=== PATIENT | female | born 1955 | race Hispanic/Latino ===

== ENCOUNTER 2025-07-07 14:59 | Emergency (ER) | payer OTHER, SELFPAY ==
--- NOTE | 2025-07-07 15:07 | ED_ITS ---
HPI - URI/Sore Throat General Chief Complaint: Upper Respiratory Infection Stated Complaint: Cough Time Seen by Provider: 07/07/25 15:00 Source: patient Mode of arrival: ambulatory Limitations: no limitations History of Present Illness HPI Narrative: Patient is a 70-year-old female who presents with 1 and half weeks of productive cough. Patient coughing up green mucus and has intermittent shortness of breath with exertion. Was taking Robitussin but stopped due to being diabetic. Denies any congestion, ear pain, fever, chills, nausea vomiting, diarrhea. Related Data Home Medications ?Medication ?Instructions ?Recorded ?Confirmed ?Last Taken ?Type atorvastatin 20 mg tablet mg 07/07/25 Unknown History chlorthalidone 25 mg tablet mg 07/07/25 Unknown Histo ry empagliflozin 25 mg tablet mg 07/07/25 Unknown Histor y (Jardiance) insulin glargine 100 unit/mL (3 unit subcut 07/07/25 Unknown History mL) subcutaneous pen (Basaglar KwikPen U-100 Insulin) levothyroxine 100 mcg tablet mcg 07/07/25 Unknown His tory losartan 50 mg tablet mg 07/07/25 Unknown History metformin 1,000 mg tablet mg 07/07/25 Unknown History Allergies Allergy/AdvReac Type Severity Reaction Status Date / Time No Known Drug Allergies Allergy none Verified 07/07/25 15:20 Review of Systems Review of Systems: All systems reviewed & are unremarkable except as noted in HPI and below Constitutional: Constitutional: Denies chills, Denies fatigue, Denies fever(s), Denies headache(s), Denies malaise and Denies weakness Eyes: Eyes: Denies blurry vision, Denies itchy eyes and Denies loss of vision ENT: Denies otalgia, Denies headache(s), Denies nasal congestion, Denies sinus pain and Denies sore throat Cardiovascular: Cardiovascular: Denies chest pain, Denies irregular heart rhythm and Denies dyspnea Respiratory: Respiratory: Reports cough and Denies dyspnea Gastrointestinal: Gastrointestinal: Denies abdominal pain, Denies diarrhea, Denies nausea and Denies vomiting Musculoskeletal: Musculoskeletal: Denies back pain, Denies myalgias and Denies arthralgias Integumentary/Breasts: Skin/Breast: Denies pruritus and Denies rash Neurologic: Denies headache(s), Denies loss of vision and Denies weakness Psychiatric: Psychiatric: Reports no additional psychiatric complaints Endocrine: Endocrine: Denies fatigue Allergic/Immunologic: Allergic/Immunologic: Denies itchy eyes PMFSH Comments At time of signature, agree with nursing past medical, surgical, social and family history. There is no relevant family history pertinent to the presenting complaint. Exam Const: General: cooperative, healthy appearing, comfortable, no acute distress and well nourished Nutritional Appearance: well nourished Orientation/consciousness: patient oriented x3 Limitations: no limitations HENMT: Head: normal to inspection, normocephalic and atraumatic Ears: hearing grossly normal bilaterally, external ears normal, TM's normal bilaterally, EAC's normal and no periauricular adenopathy Face/Nose/Sinus: Normal external nose present, Abnormal mucous membranes and turbinates present erythematous bilateral and diffuse, normal facial exam, sinuses nontender and face symmetric Face and sinus: normal facial exam, sinuses nontender and face symmetric Mouth: Yes Normal oral and palatal mucosa present, Yes lip normal, Yes tongue normal, Yes Normal salivary glands and ducts present, Yes oropharynx normal and Yes moist mucous membranes Teeth and gingiva: dentition normal Throat: posterior oropharynx normal, tonsils normal and uvula midline Eyes: General: appearance normal, both eyes and all related structures Alignment and Position: alignment normal and position normal Periorbital: periorbital findings normal Eyelids: eyelids normal Pupils: Equal, round and reactive pupils present Neck: Neck: normal visual inspection, full ROM, no lymphadenopathy and supple Chest: Chest palpation & inspection: normal inspection of the chest and normal palpation of entire chest wall Resp: Effort & Inspection: normal respiratory effort and able to speak in complete sentences Auscultation: no crackles, no rales, rhonchi lower bilaterally and no wheezes Cardio: Rate: regular rate Rhythm: regular rhythm Heart sounds: S1 normal heart sound present and S2 normal heart sound present GI: Inspection: normal to inspection Skin: General skin exam: normal color and no rashes or lesions noted Neuro: General: patient oriented x3 and moves all extremities Cranial nerves: Yes Equal, round and reactive pupils present Speech: normal speech Gait exam (Neuro): Normal gait present Extrem: General: normal to inspection, full ROM and no edema Psych: Appearance: grossly normal and well kempt Mental Status: mental status grossly normal Speech and movement: Normal speech and movement present Affect: normal affect Attitude: cooperative Thought process: Normal thought process present Course Course Emergency Course: Discharge instructions reviewed with patient, as well as provided in writing per nursing staff. The instructions also include specific and strict return/GO TO THE ER as well as f/u information. All questions have been answered, and the patient deny any further questions with discharge and discharge plan. Portions of this record may have been created with voice recognition software Level of Care: Express Care Visit Vital Signs Vital signs: Vital Signs Temperature 36.8 C 07/07/25 15:13 Pulse Rate 81 07/07/25 15:13 Respiratory Rate 16 07/07/25 15:13 Blood Pressure 158/68 H 07/07/25 15:13 Pulse Oximetry 99 07/07/25 15:13 Oxygen Delivery Room Air 07/07/25 15:13 Temperature 36.8 C 07/07/25 15:13 Pulse Rate 81 07/07/25 15:13 Respiratory Rate 16 07/07/25 15:13 Blood Pressure 158/68 H 07/07/25 15:13 Pulse Oximetry 99 07/07/25 15:13 Oxygen Delivery Room Air 07/07/25 15:13 Reviewed MDM - URI/Sore Throat MDM Narrative Medical decision making narrative: Symptoms and exam consistent with bronchitis. Will treat with antibiotics, albuterol inhaler and Tessalon Perles. Will avoid steroids due to diabetes Pt well hydrated appearing, in no respiratory distress, hemodynamically stable. Recommend supportive care. The patient is stable at time of discharge the clinical impression was discussed and the patient was given the opportunity to ask questions, which were addressed as completely as possible given the information available at present. Anticipatory guidance and return to care precautions were discussed and the importance of primary care follow-up was stressed and encouraged. The patient voiced understanding of the plan, indications to return, and the need for follow-up. Exam findings show no acute concerns or changes Patient is appropriate for outpatient treatment and follow-up. Differential diagnosis considered: [place] virus, strep pharyngitis, allergic rhinitis, upper respiratory tract infection, sinusitis, rhinosinusitis, nasopharyngitis. viral pharyngitis, otitis media, otitis externa, otitis effusion, foreign body, cerumen impaction, viral syndrome, and influenza.? Medical Records Attestation: I reviewed the patient's medical records. Discharge Plan Discharge Clinical Impression: Acute purulent bronchitis Patient Disposition: Home Condition: Stable Instructions: Acute Bronchitis (ED) Additional Instructions: Take antibiotic as prescribed. Use Tessalon Perles as needed for cough. Use inhaler with spacer as needed. Other symptomatic treatments include: -Alternate Tylenol and Motrin per package directions for fever or pain: Tylenol 650-1000mg by mouth every 4-6 hours. Do not exceed 4000mg in 24 hours. Advil (Ibuprofen) 600 mg by mouth every 6 hours. Do not exceed 2400mg in 24 santo rs. 8 AM: Tylenol 11 AM: Ibuprofen 2 PM: Tylenol 5 PM: Ibuprofen 8 PM: Tylenol 11 PM: Ibuprofen 2 AM: Tylenol 5 AM: Ibuprofen -Antihistamine medication such as Benadryl at night and Zyrtec/Claritin/Zulma during the day can help improve symptoms. -Use Flonase twice a day for 5 days then daily to help reduce the inflammation and dry up your sinuses. -You can also use Sudafed or Mucinex. Be sure to drink plenty of water with these medications at least 8 ounces with every dose and it is important to drink 8 to 10 glasses of water per day. Water is a natural decongestant -Eat and drink things that are easy to swallow, like tea or soup, or popsicles. -Oral rinses such as: Salt water gargles and/or may use topical anesthetic (eg. Chloraseptic spray) or lozenges to relieve dryness or throat pain). -Frequent hand washing or hand complaint investigations officer is one of the best ways to prevent spread of infection. -Using a vaporizer or humidifier at night will also help thin secretions and help with coughing up phlegm. Call your Primary Care Doctor and make a follow-up appointment in 3 days. If your cough worsens, you develop a fever greater than 103, you develop shaking chills, a fast heartbeat, trouble breathing and/or feel you are are breathing much faster than usual, call your Primary Care Doctor or go to the ER. Your blood pressure was elevated above 120/80 today at Urgent Care. This puts you above the threshold for follow up visit with a primary care provider. High blood pressure does not usually cause any symptoms, however it may lead to kidney failure, stroke, heart disease just to name a few if untreated . Many people are anxious when seeing a provider or nurse. As a result, you are not diagnosed with hypertension at this time unless your blood pressure is persistently high at two office visits at least one week apart. Some things that can help lower blood pressure are lifestyle modifications, such as light exercise, decreased salt in diet, and weight loss. It is important to follow up with a PCP about this within 1 week. [place] el antibi?dianna seg?n lo prescrito. Use Tessalon Perles seg?n sea necesario para la tos. Use el inhalador con espaciador seg?n sea necesario. Otros tratamientos sintom?ticos incluyen: -Alternar Tylenol y Motrin seg?n las instrucciones del empaque para la fiebre o el dolor: Tylenol 650-1000 mg por v?a oral cada 4-6 horas. No exceda los 4000 mg en 24 horas. Advil (Ibuprofeno) 600 mg por v?a oral cada 6 horas. No exceda los 2400 mg en 24 horas. 8 a. m.: Tylenol 11 a. m.: Ibuprofeno 2 p. m.: Tylenol 5 p. m.: Ibuprofeno 8 p. m.: Tylenol 11 p. m.: Ibuprofeno 2 a. m.: Tylenol 5 a. m.: Ibuprofeno -Los antihistam?nicos britt Benadryl por la noche y Zyrtec/Claritin/Zulma edna el d?a pueden ayudar a aliviar los s?ntomas. Use Flonase dos veces al d?a edna 5 d?as y luego diariamente para ayudar a reducir la inflamaci?n y descongestionar los senos paranasales. Tambi?n puede usar Sudafed o Mucinex. Aseg?rese de beber edna agua con estos medicamentos, al menos 240 ml (8 onzas) con cada dosis. Es importante beber de 8 a 10 vasos de agua al d?a. El agua es un descongestionante natural. Coma y chemo alimentos f?ciles de tragar, britt t?, sopa o paletas heladas. Realice enjuagues bucales britt g?rgaras con agua salada o use un anest?sico t?oriana (por ejemplo, aerosol Chloraseptic) o pastillas para aliviar la sequedad o el dolor de garganta. Lavarse las emmanuel frecuentemente o usar desinfectante para emmanuel es dolores de las mejores maneras de prevenir la propagaci?n de infecciones. Usar un vaporizador o humidificador por la noche tambi?n ayudar? a fluidificar las secreciones y a expectorar la flema. Llame a mays m?dico de cabecera y programe dolores wing de seguimiento en 3 d?as. Si mays tos empeora, presenta fiebre superior a 39.4 ?C, escalofr?os con temblores, taquicardia, dificultad para respirar o siente que respira mucho m?s r?pido de lo normal, llame a mays m?dico de cabecera o acuda a urgencias. [place] presi?n arterial estuvo elevada por encima de 120/80 mmHg hoy en el centro de atenci?n urgente. [place] indica que debe programar dolores wing de seguimiento con mays m?dico de cabecera. La presi?n arterial shana generalmente no causa s?ntomas, p ero puede provocar insuficiencia renal, accidente cerebrovascular, enfermedades card?acas, entre otras afecciones, si no se trata. Muchas personas sienten ansiedad al consultar con un m?dico o enfermero. Por lo tanto, no se le diagnostica hipertensi?n en pavel momento a menos que mays presi?n arterial se mantenga shana en dos consultas m?dicas con al menos dolores semana de diferencia. Algunas medidas que pueden ayudar a bajar la presi?n arterial son cambios en el estilo de william, britt ejercicio ligero, reducci?n del consumo de melvin y p?rdida de peso. Es importante que consulte con mays m?dico de cabecera sobre esto dentro de dolores semana. Patient Language: [place] Prescriptions: New (DME) Aerochamber MV Spacer See Rx Instructions .Route Qty: 1 0RF Rx Instructions: As directed benzonatate 100 mg capsule 100 mg PO BID PRN (Reason: cough) Qty: 14 0RF albuterol sulfate 90 mcg/actuation HFA aerosol inhaler 2 puff inhalation QID PRN (Reason: shortness of breath or wheezing) Qty: 6.7 0RF amoxicillin-pot clavulanate 875-125 mg tablet 1 tablet PO Q12H 10 Days Qty: 20 0RF No Action losartan 50 mg tablet atorvastatin 20 mg tablet chlorthalidone 25 mg tablet levothyroxine 100 mcg tablet metformin 1,000 mg tablet insulin glargine [Basaglar KwikPen U-100 Insulin] 100 unit/mL (3 mL) insulin pen SUBCUT Jardiance 25 mg tablet Follow-up/Referrals: Lisa,HIGINIO Carrera [Primary Care Provider, Family Practice] - 3 Days Time of Disposition: 16:02
[2025-07-07 15:13] VITALS: BP 158/68; PULSE 81; RESP 16; TEMP 36.8; O2SAT 99
== END 2025-07-07 16:15 | disposition home or self-care (01) ==
PROVIDERS: Emergency Provider Nurse Practitioner Family; PCP Physician Assistant
DX: J20.9 Acute bronchitis, unspecified (principal); E11.9 Type 2 diabetes mellitus without complications; Z79.4 Long term (current) use of insulin; Z79.84 Long term (current) use of oral hypoglycemic drugs; I10 Essential (primary) hypertension; E78.00 Pure hypercholesterolemia, unspecified; E03.9 Hypothyroidism, unspecified
CPT/HCPCS: 99203; G0463